=== PATIENT | male | born 1965 | race Caucasian/White ===

== ENCOUNTER → 2016-09-02 | Outpatient (CLI) | payer MEDICARE, MEDICAID ==
[~2016-09-02] MED LIST: ARIP30TA10 PO; PALI6TAB6 PO
[2016-09-02 11:53] LABS: THYROID STIMULATING HORMONE 0.74 UIU/ML (0.35-4.94)
[2016-09-03 06:55] LABS: SYPHILIS SCREEN PT Non-Reactive
== END ==
LOC: LAB 10:46
PROVIDERS: ATTEND Psychiatry & Neurology Neurology
DX: R42 Dizziness and giddiness (principal); R53.82 Chronic fatigue, unspecified; R26.81 Unsteadiness on feet
CPT/HCPCS: 36415; 82550; 82607; 84436; 84443; 86780

== ENCOUNTER 2017-03-02 08:54 | Outpatient (RCR) | payer MEDICARE, MEDICAID | END 2017-04-20 10:48 | disposition home or self-care (01) | PROVIDERS: ATTEND Orthopaedic Surgery Sports Medicine | DX: Z47.89 Encounter for other orthopedic aftercare (principal); M25.562 Pain in left knee ==

== ENCOUNTER → 2021-12-19 | Outpatient (CLI) | payer MEDICARE ==
[~2021-12-19] MED LIST changes: -ARIP30TA10 PO; +ARIP30TA21 PO
== END ==
LOC: CARD 09:32
PROVIDERS: ATTEND Internal Medicine Cardiovascular Disease
DX: I11.9 Hypertensive heart disease without heart failure (principal); I25.10 Atherosclerotic heart disease of native coronary artery without angina pectoris
CPT/HCPCS: 93306

== ENCOUNTER → 2022-09-09 | Outpatient (CLI) | payer MEDICARE, MEDICAID ==
[~2022-09-09] MED LIST changes: +RT-ALBUTEROL SULF 2.5 MG/3 ML PRE-MIX VIAL INH ONE
== END ==
LOC: RT 12:32
PROVIDERS: ATTEND Nurse Practitioner Family
DX: J44.9 Chronic obstructive pulmonary disease, unspecified (principal)
CPT/HCPCS: 94060; 94726; 94729